=== PATIENT | female | born 1975 | race Caucasian/White ===

== ENCOUNTER 2020-10-16 18:09 | Emergency (ER) | payer MEDICAID, SELFPAY ==
[~2020-10-16] VITALS: Ht 157.5 cm; Wt 63.5 kg
[2020-10-16 18:45] VITALS: BP_SYST 139
[2020-10-16 19:49] VITALS: BP_SYST 139
== END 2020-10-16 19:49 | disposition home or self-care (01) ==
LOC: SED 18:09
DX: R50.9 Fever, unspecified (principal); E07.9 Disorder of thyroid, unspecified; Z20.822 Contact with and (suspected) exposure to COVID-19
CPT/HCPCS: 99283; C9803; U0003

== ENCOUNTER 2021-07-15 10:45 | Emergency (ER) | payer MEDICAID, SELFPAY ==
[~2021-07-15] VITALS: Ht 165.1 cm; Wt 90.7 kg
--- NOTE | 2021-07-15 10:50 | NUR ---
Patient to ER bed 5 to gown for evaluation. Side rails up.
--- NOTE | 2021-07-15 10:50 | NUR ---
Pt bib sister with c/o abdominal pain 8 and constipation x2 days. Denies n/v at this time. Reports h/o constipation. V/s stable, no acute distress noted
[2021-07-15 11:01] VITALS: BP_SYST 125
--- NOTE | 2021-07-15 11:30 | NUR ---
ER Dr. Marcano at bedside examining patient.
[2021-07-15] MEDS ORDERED: DICYCLOMINE HCL 10 MG CAPSULE PO ONE (11:45)
--- NOTE | 2021-07-15 11:45 | NUR ---
# 20 gauge angiocath placed to RAC. Use of asceptic technique. Opsite placed over site. Blood return noted. Blood for lab drawn from site. Flushed with 10 cc of normal saline. No evidence of infiltration noted. Patient tolerated well.
[2021-07-15] MEDS ORDERED: NACL 0.9% 1,000 ML IV ONE (12:00)
[2021-07-15 12:39] LABS: HEMATOCRIT 37.6 % (36-48); HEMOGLOBIN 12.8 g/dL (12.0-16.0); MEAN CORPUSCULAR HEMOGLOBIN 29 pg (27-31); MEAN CORPUSCULAR HGB CONC 34 % (32-36); MEAN CORPUSCULAR VOLUME 86 fL (79.0-98.0); PLATELET COUNT (AUTO) 303 K/uL (130-430); RED BLOOD CELL COUNT(AUTO) 4.36 MIL/uL (4.2-6.2); RED CELL DISTRIBUTION WIDTH 12.7 % (9.0-15.0); WHITE BLOOD COUNT (AUTO) 21.1 K/uL (4.8-10.8)
[2021-07-15 12:44] LABS: CALCIUM 8.4 mg/dL (8.4-11.0); CREATININE 0.74 mg/dL (0.55-1.30); POTASSIUM 3.1 mmol/L (3.5-5.1)
[2021-07-15 12:55] LABS: ALBUMIN 3.3 g/dL (3.4-4.8); TOTAL BILIRUBIN 0.6 mg/dL (0.0-1.0)
--- NOTE | 2021-07-15 13:26 | NUR ---
Patient transported to radiology via wheelchair, accompanied by staff.
[2021-07-15] MEDS ORDERED: KCL 20 mEq in 100 mL (PREMIX) 100 ML IV ONE (13:30)
[2021-07-15 14:12] LABS: BILIRUBIN,URINE NEGATIVE (NEGATIVE); BLOOD, URINE NEGATIVE (NEGATIVE); CLARITY/URINE CLEAR (CLEAR); COLOR,URINE YELLOW (YELLOW); GLUCOSE,URINE NEGATIVE (NEGATIVE); KETONES,URINE NEGATIVE (NEGATIVE); LEUKOCYTE ESTERASE ,URINE NEGATIVE (NEGATIVE); NITRITE, URINE NEGATIVE (NEGATIVE); PROTEIN URINE NEGATIVE (NEGATIVE); UROBILINOGEN,URINE 0.2 (0.2-1.0)
--- NOTE | 2021-07-15 14:40 | NUR ---
Dr. Young at beside to perform a rectal exam with myself as chaparone. Pt tolerated well.
[2021-07-15] MEDS ORDERED: DOCU-144 PO (14:55)
[2021-07-15] MEDS ORDERED: HYDR-3917 PO (16:06)
[2021-07-15] MEDS ORDERED: NEOM30OI34 TP (16:13)
--- NOTE | 2021-07-15 16:20 | NUR ---
Patient given written and verbal discharge instructions and verbalizes understanding. ER MD discussed with patient the results and treatment provided. Patient in stable condition. ID arm band removed. IV catheter removed intact and dressing applied, no active bleeding. Rx of Colace, [place], Bacitracin given. Patient educated on pain management and to follow up with PMD. Pain Scale 0. Opportunity for questions provided and answered. Medication side effect fact sheet provided.
[2021-07-15 16:23] VITALS: BP_SYST 125
[2021-07-15 21:44] LABS: BAND % (MANUAL) 4 % (0-6); BASOPHILS % (MANUAL) 0 % (0-2); EOSINOPHILS % (MANUAL) 0 % (0-7); LYMPHOCYTES % (MANUAL) 11 % (20-46); MONOCYTES % (MANUAL) 9 % (0-11)
== END 2021-07-15 16:23 | disposition home or self-care (01) ==
LOC: SED 10:45
DX: E87.6 Hypokalemia (principal); D72.829 Elevated white blood cell count, unspecified; R10.33 Periumbilical pain
CPT/HCPCS: 36415; 74176; 76376; 80053; 81003; 83690; 84702; 85007; 85027; 96361; 96365; 96366; 99284; J3480; J7030

== ENCOUNTER 2021-07-19 13:55 | Emergency (ER) | payer MEDICAID, SELFPAY ==
[~2021-07-19] VITALS: Ht 165.1 cm; Wt 63.5 kg
[2021-07-19 13:55] VITALS: BP_SYST 128
[~2021-07-19 13:55] MED LIST: DOCU-144 PO; HYDR-3917 PO; NEOM30OI34 TP
--- NOTE | 2021-07-19 13:55 | NUR ---
BROUGHT BACK TO BED #8 AND TRIAGED. REPORT GIVEN TO GERARDO
--- NOTE | 2021-07-19 14:08 | NUR ---
DR LAST AT BEDSIDE FOR EVALUATION
--- NOTE | 2021-07-19 14:15 | NUR ---
ER at bedside examining patient.
--- NOTE | 2021-07-19 14:20 | NUR ---
pt. bib family members for f/u, pt was here on 07/15 for constipation and found to have a high WBC and was instructed to return today
[2021-07-19 14:42] LABS: BASOPHILS # (AUTO) 0.1 K/uL (0.0-0.2); BASOPHILS % (AUTO) 0.7 % (0.0-2.0); EOSINOPHILS # (AUTO) 0.1 K/uL (0.0-0.4); EOSINOPHILS % (AUTO) 0.6 % (0.0-4.0); HEMOGLOBIN 13.3 g/dL (12.0-16.0); LYMPHOCYTES # (AUTO) 3.3 K/uL (1.0-5.5); LYMPHOCYTES % (AUTO) 34.6 % (20.5-51.5); MEAN CORPUSCULAR HEMOGLOBIN 29 pg (27-31); MEAN CORPUSCULAR HGB CONC 34 % (32-36); MEAN CORPUSCULAR VOLUME 87 fL (79.0-98.0); MONOCYTES # (AUTO) 0.6 K/uL (0.0-1.0); NEUTROPHILS # (AUTO) 5.5 K/uL (1.8-7.7); NEUTROPHILS % (AUTO) 58.1 % (40.0-70.0); PLATELET COUNT (AUTO) 317 K/uL (130-430); RED BLOOD CELL COUNT(AUTO) 4.51 MIL/uL (4.2-6.2); WHITE BLOOD COUNT (AUTO) 9.6 K/uL (4.8-10.8)
[2021-07-19 14:59] LABS: CALCIUM 9.5 mg/dL (8.4-11.0); CREATININE 0.81 mg/dL (0.55-1.30); POTASSIUM 3.6 mmol/L (3.5-5.1)
[2021-07-19 15:05] LABS: ALBUMIN 3.8 g/dL (3.4-4.8); TOTAL BILIRUBIN 0.2 mg/dL (0.0-1.0)
[2021-07-19 15:11] LABS: C-REACTIVE PROTEIN QUANT 0.4 mg/dL (0-0.5)
[2021-07-19 15:51] VITALS: BP_SYST 117
--- NOTE | 2021-07-19 15:52 | NUR ---
Patient given written and verbal discharge instructions and verbalizes understanding. ER Dr. Young discussed with patient the results and treatment provided. Patient in stable condition. ID arm band removed. Patient educated on pain management and to follow up with PMD. Pain Scale 0. Opportunity for questions provided and answered. Medication side effect fact sheet provided.
== END 2021-07-19 15:52 | disposition home or self-care (01) ==
LOC: SED 13:55
DX: R10.9 Unspecified abdominal pain (principal); Z79.899 Other long term (current) drug therapy
CPT/HCPCS: 36415; 80053; 82150; 83605; 83690; 85025; 86140; 99283

== ENCOUNTER 2021-09-28 16:18 | Emergency (ER) | payer MEDICAID, SELFPAY ==
[~2021-09-28] VITALS: Ht 149.9 cm; Wt 38.1 kg
[2021-09-28 16:30] VITALS: BP_SYST 125
[2021-09-28 17:58] VITALS: BP_SYST 122
== END 2021-09-28 17:59 | disposition home or self-care (01) ==
LOC: SED 16:18
DX: J06.9 Acute upper respiratory infection, unspecified (principal); Z20.822 Contact with and (suspected) exposure to COVID-19; Z79.899 Other long term (current) drug therapy
CPT/HCPCS: 99283; U0003; C9803